=== PATIENT | female | born 1975 | race Caucasian/White ===

== ENCOUNTER 2023-09-18 13:03 | Emergency (ER) | payer OTHER, SELFPAY ==
[2023-09-18 13:07] VITALS: BP 153/73
--- NOTE | 2023-09-18 13:25 | ED.GENMED ---
History of Present Illness
<Mattie Zhou PROBATION OFFICER - Last Filed: 09/18/23 20:31>
General
Chief Complaint: Swelling
Source: patient
Exam Limitations: none
Time Seen by Provider: 09/18/23 13:18
Nursing documentation reviewed up to this point in time: agreed with
History of Present Illness
History of Present Illness:
48-year-old female with history of iron deficiency anemia, received her first dose infusion of iron in February of this year. No other medical history, takes no medications. Patient states yesterday her right leg felt a little sore and today she
awakened with swelling in the right leg from the mid thigh down to the ankle, the ankle and the foot are not affected but her toes feel numb and tingly. She denies chest pain or shortness of breath. She is an avid walker and walks about 25 miles
per week. No recollection of injury. She did fly to [place] and back for a cruise on July 28 and . She flew to [place] on 08/22 and back again.
Past History
<Mattie Zhou, PROBATION OFFICER - Last Filed: 09/18/23 20:31>
Past History
ED Past Medical History: Other (Iron deficiency anemia)
ED Past Surgical History: Appendectomy and
Social History
Tobacco: Non-smoker
Alcohol: None
Living: with family
Review of Systems
<Mattie Zhou, PROBATION OFFICER - Last Filed: 09/18/23 20:31>
Review of Systems
Allergies reviewed?: Yes
All Other Systems: ROS reviewed and negative except as documented in HPI and ROS
Constitutional: Denies fever
Respiratory: Denies trouble breathing
Cardiac: Denies chest pain
ABD/GI: Denies abdominal pain
Musculoskeletal: Reports other (swelling and discomfort right leg)
Skin: Reports no symptoms
Neurological: Reports numbness (tingling and mild numbness right foot and toes)
Phy Exam
<Mattie Zhou, PROBATION OFFICER - Last Filed: 09/18/23 20:31>
Physical Exam
Physical Exam:
GENERAL: No acute distress. A&Ox3.
CONSTITUTIONAL: Afebrile.
RESPIRATORY: Regular respirations, nonlabored, lungs clear.
CARDIOVASCULAR: Regular rate and rhythm, no murmurs, no rubs.
GI: Soft, nontender, normal BS
MUSCULOSKELETAL: Well perfused. Right leg with +1 swelling mostly from mid thigh to knee. mild swelling lower leg to ankle. Tender to palpation over quadriceps tendon. No discoloration. Pain elicited anterior thigh with SLR, flexing of knee (can
only flex to 45 degrees due to pain), PT pulse normal, unable to hear DP pulse with doppler, brisk capillary refill. Foot warm, pink, brisk capillary refill.
SKIN: Warm, dry, pink
PSYCH: Normal mood and affect. Well kept, interactive and appropriate
NEUROLOGIC: Awake, alert and oriented. No focal neurological deficits
Scores
<Mattie Zhou, PROBATION OFFICER - Last Filed: 09/18/23 20:31>
Heart Failure Risk
Heart Failure Risk Score: Not Applicable
Course
<Mattie Zhou, PROBATION OFFICER - Last Filed: 09/18/23 20:31>
Orders/Labs/Results
Orders:
Orders
09/18/23 13:25
US Periph Venous LOWER Ext RT Urgent
Comment:
Reason For Exam: swelling mid thigh to ankle
09/18/23 15:46
Complete Blood Count/With Diff Urgent
09/18/23 15:47
Basic Metabolic Panel Urgent
CPK [Creatine Phosphokinase] Stat
HCG, Serum Qualitative Screen Urgent
Comment: SERUM HCG QUALITATIVE ADDED ON BY FLOOR 3:50PM 09-18-23
09/18/23 15:49
Add On- LAB Urgent
Comments:: serum hcg qualitative
Tests Added?: serum hcg qualitative
09/18/23 16:16
CT Abd Aorta Angio W/ Run Off Urgent
Reason For Exam: Pain, swelling RLE unable to get DP pulse w dopple
09/18/23 18:31
CR Knee- Right 4 Or More View* Urgent
Comment:
Reason For Exam: swelling, pain suprapatellar area
09/18/23 19:57
Guillermo Wrap Right-Treatment ONCE
Comment: knee
Knee Immobilizer Right-Treatme ONCE
Abnormal Lab Results
09/18/23 09/18/23
15:46 15:47
RBC 3.57 L 10^6/uL
(4.20-5.40)
Hgb 9.3 L g/dL
(12.0-16.0)
Hct 29.0 L %
(37.0-47.0)
MCH 26.1 L pg
(27.0-31.0)
MCHC 32.1 L g/dL
(33.0-37.0)
MPV 10.6 H fL
(7.4-10.4)
Chloride 108 H mmol/L
(98-107)
09/18/23 15:46
09/18/23 15:47
Vital Signs
Initial and Last Documented VS:
Initial Vital Signs
Temp Pulse Resp BP Pulse Ox
98.9 F 75 18 153/73 99
09/18/23 13:07 09/18/23 13:07 09/18/23 13:07 09/18/23 13:07 09/18/23 13:07
Last Documented Vital Signs
Temp Pulse Resp BP Pulse Ox
98.9 F 62 17 137/67 99
09/18/23 13:07 09/18/23 19:44 09/18/23 19:44 09/18/23 19:44 09/18/23 19:44
<Casie Anaya MD - Last Filed: 09/18/23 16:18>
Orders/Labs/Results
Orders:
Orders
09/18/23 13:25
US Periph Venous LOWER Ext RT Urgent
Comment:
Reason For Exam: swelling mid thigh to ankle
09/18/23 15:46
Complete Blood Count/With Diff Urgent
09/18/23 15:47
Basic Metabolic Panel Urgent
CPK [Creatine Phosphokinase] Stat
HCG, Serum Qualitative Screen Urgent
Comment: SERUM HCG QUALITATIVE ADDED ON BY FLOOR 3:50PM 09-18-23
09/18/23 15:49
Add On- LAB Urgent
Comments:: serum hcg qualitative
Tests Added?: serum hcg qualitative
09/18/23 16:16
CT Abd Aorta Angio W/ Run Off Urgent
Reason For Exam: Pain, swelling RLE unable to get DP pulse w dopple
09/18/23 18:31
CR Knee- Right 4 Or More View* Urgent
Comment:
Reason For Exam: swelling, pain suprapatellar area
09/18/23 19:57
Guillermo Wrap Right-Treatment ONCE
Comment: knee
Knee Immobilizer Right-Treatme ONCE
Abnormal Lab Results
09/18/23 09/18/23
15:46 15:47
RBC 3.57 L 10^6/uL
(4.20-5.40)
Hgb 9.3 L g/dL
(12.0-16.0)
Hct 29.0 L %
(37.0-47.0)
MCH 26.1 L pg
(27.0-31.0)
MCHC 32.1 L g/dL
(33.0-37.0)
MPV 10.6 H fL
(7.4-10.4)
Chloride 108 H mmol/L
(98-107)
09/18/23 15:46
09/18/23 15:47
Vital Signs
Initial and Last Documented VS:
Initial Vital Signs
Temp Pulse Resp BP Pulse Ox
98.9 F 75 18 153/73 99
09/18/23 13:07 09/18/23 13:07 09/18/23 13:07 09/18/23 13:07 09/18/23 13:07
Last Documented Vital Signs
Temp Pulse Resp BP Pulse Ox
98.9 F 62 17 137/67 99
09/18/23 13:07 09/18/23 19:44 09/18/23 19:44 09/18/23 19:44 09/18/23 19:44
Procedures
<Mattie Zhou, PROBATION OFFICER - Last Filed: 09/18/23 20:31>
Incision/Drainage/Joint Aspiration
Right Lateral Knee:
Anethesia: 1% Lidocaine with Epi
Preparation: cleaned with alcohol wipe
Type of procedure: aspiration
Nature of site: other (suprapatellar effusion)
Description of abscess: drainage
How much fluid was obtained?: number in mls (45)
Fluid description: clear and straw colored
Treatment: bandaid applied
<Mattie Zhou PROBATION OFFICER - Last Filed: 09/18/23 20:31>
MDM/Problems Addressed
Differential Diagnosis Includes:
DVT., vascular occlusion, torn quadriceps, torn meniscus
MDM/Problems Addressed:
48-year-old female with history of iron deficiency anemia, received her first dose infusion of iron in February of this year. No other medical history, takes no medications. Patient states yesterday her right leg felt a little sore and today she
awakened with swelling in the right leg from the mid thigh down to the ankle, the ankle and the foot are not affected but her toes feel numb and tingly. She denies chest pain or shortness of breath. She is an avid walker and walks about 25 miles
per week. No recollection of injury. She did fly to [place] and back for a cruise on July 28 and . She flew to [place] on 08/22 and back again.
3:15 p.m.
US neg for DVT. No compartment syndrome
Case discussed with Dr. Anaya who examined pt., unable to get DP pulse with Doppler. Foot remains warm, pink.
CTA results:IMPRESSION:
1. Slightly diminished flow of the right distal anterior tibial artery and the dorsalis pedis. The bilateral lower extremity arterial vasculature is otherwise unremarkable.
2. Small to moderate right knee joint effusion.
Aspirated 45 ml clear straw colored fluid. Do not suspect infection, no need for fluid lab evaluation.
Guillermo wrap and knee immobilizer applied. Referred to ortho for f/u
Ambulating well with knee immobilizer
<Mattie Zhou PROBATION OFFICER - Last Filed: 09/18/23 20:31>
*Critical Care Note
Total Time (30-74mins, 75-104mins- exclusive of procedures): Not Applicable
ED Attending Note
<Mattie Zhou PROBATION OFFICER - Last Filed: 09/18/23 20:31>
-
Portions of this chart may have been created with voice recognition software.� Occasional wrong word or��sound alike� substitutions may have occurred due to the inherent limitations of voice recognition software.
<Casie Anaya MD - Last Filed: 09/18/23 16:18>
ED Attending Note
Patient seen and examined by attending physician: Yes
I performed the substantive portion of visit, reviewed & personally made and approve the management plan that is documented in note by myself or JACQUE.: Yes
ED Attending Note:
48-year-old female , generally healthy (no diabetes), presents with R leg pain for last two days, worse today. No cp/sob/f/c/drdainage. She notes leg is sl more swollen (thigh and distally) and notes pain with movement in distal thigh/patellar
tendon area. No injury/fall/trauma that she can easily recall. No redness. Pt did note recent travel, walks regularly. She noted some numbness, vague, in toes, now gone. On exam, no redness/warmth/bruising/crepitus/blistering/drainage or other
skin changes. With flexion of knee/straightleg raise, pt able to perform but sl limited rom b/c she feels it is swollen/tight in superior aspect patellar tendon and popliteal fossa area.
Normal pulses, warm, no cyanosis/pallor. US neg for DVT. Will explore further with CT, r/o collection/abscess?/nec fasc (very unlikely)/mass. Do not clinically appreciate compartment syndrome (no pain out of proportion, compartments are soft,
sens intact to light touch, no motor weakness) or vascular compromise (no cyanosis/pallor) however unable to get a DP pulse on R (can get PT) with doppler. d/w vascular, will get CTA and f/u.
Discharge Plan
Departure
Patient Disposition: Home (Routine Discharge)
Date of Disposition: 09/18/23
Time of Disposition: 19:57
Patient with high blood pressure during this ER visit?: No
Condition: Good
Discharge Problem:
Effusion of right knee
Instructions: Swollen Joints (DC), Meniscus Tear ED
Prescriptions:
No Action
No Current Medications
Referrals:
Charisma Joyce PA [Family Provider] -
Tatianna Ornelas I., DO [Active] - Call in 1-3 days for appt
Activity Restrictions/Additional Instructions:
As we discussed, wear the knee immobilizer when up and around for the next 5 days. Wear the guillermo wrap for the next 5 days as needed for swelling.
Call the orthopedic doctor's office tomorrow morning and make appointment for sometime in the next 2 weeks.
Tylenol or Ibuprofen as needed for pain
You may have a torn meniscus and MAY need further imaging.
Interventions
Interventions:
*Risk Screen - Suicide Last Done: 09/18/23 13:07
*General Assessment Last Done: 09/18/23 13:07
*Neglect/Abuse Screening Last Done: 09/18/23 13:07
*ED COVID-19 Vaccine History Last Done: 09/18/23 13:07
*Nursing Disposition Last Done: 09/18/23 20:21
ED- Cardiac Assessment Last Done: 09/18/23 14:57
ED- Pulmonary Assessment Last Done: 09/18/23 14:57
ED-Skin Assessment Last Done: 09/18/23 14:57
Discharge Date and Time
Discharge Date/Time: 09/18/23 20:22
Print Language: HUNGARIAN
[2023-09-18 14:54] VITALS: BMI 30.9
[2023-09-18 14:55] VITALS: BP 124/73
[2023-09-18 15:54] LABS: % Basophils 0.5 % (0-2); % Eosinophils 1.9 % (0-6); % Immature Granulocytes 0.2 % (0-0.5); % Lymphocytes 20.7 % (20.5-51.1); % Monocytes 5.8 % (1.7-9.3); % Neutrophils 70.9 % (42.2-75.2); Absolute Eosinophils 0.1 10^3/uL (0-0.7); Absolute Lymphocytes 1.2 10^3/uL (1.2-3.4); Absolute Monocytes 0.3 10^3/uL (0.1-0.6); Hemoglobin 9.3 g/dL (12.0-16.0); Mean Corp Hgb Conc. 32.1 g/dL (33.0-37.0); Mean Corpuscular Hgb 26.1 pg (27.0-31.0); Mean Corpuscular Volume 81.2 fL (81.0-99.0); Mean Platelet Volume 10.6 fL (7.4-10.4); Nucleated Red Blood Cells % 0 %; Platelet Count 265 10^3/uL (130-400); Red Blood Cell Count 3.57 10^6/uL (4.20-5.40); Red Cell Dist. Width 13.7 % (11.5-14.5); White Blood Cell Count 5.7 10^3/uL (4.8-10.8)
[2023-09-18 16:05] LABS: HCG, Serum Qualitative Screen Negative
[2023-09-18 16:08] LABS: Creatine Phosphokinase 59 U/L (30-135)
[2023-09-18 16:11] LABS: Blood Urea Nitrogen 10 mg/dl (7-17); Calcium 8.9 mg/dl (8.4-10.2); Carbon Dioxide 22 mmol/L (22-30); Chloride 108 mmol/L (98-107); Estimated Creatinine Clearance 94 ml/min; Glucose 90 mg/dl (70-99); Sodium 139 mmol/L (135-145); eGFR > 60.00
[2023-09-18 17:03] VITALS: BP 119/57
[2023-09-18 19:44] VITALS: BP 137/67
== END 2023-09-18 20:22 | disposition home or self-care (01) ==
LOC: EMR 13:03
PROVIDERS: Registered Nurse; EMERGENCY PHYSICIAN Emergency Medicine; FAMILY PHYSICIAN Physician Assistant Medical
DX: M25.461 Effusion, right knee (principal); R20.0 Anesthesia of skin; R22.41 Localized swelling, mass and lump, right lower limb; M79.651 Pain in right thigh; M25.561 Pain in right knee; R20.2 Paresthesia of skin; D50.9 Iron deficiency anemia, unspecified; Z88.8 Allergy status to other drugs, medicaments and biological substances
CPT/HCPCS: 99285; 20610; 29505; 73564; 75635; 80048; 82550; 84703; 85025; 93971; Q9967

== ENCOUNTER → 2023-10-24 06:40 | Outpatient (REF) | payer OTHER, SELFPAY | LOC: MRI 06:40 | PROVIDERS: ATTENDING PHYSICIAN Orthopaedic Surgery Sports Medicine; FAMILY PHYSICIAN Physician Assistant Medical | DX: M25.561 Pain in right knee (principal) | CPT/HCPCS: 73721 ==

== ENCOUNTER → 2023-11-13 15:59 | Outpatient (REF) | payer OTHER, SELFPAY ==
[2023-11-13 15:10] LABS: % Basophils 0.4 % (0-2); % Immature Granulocytes 0.2 % (0-0.5); % Lymphocytes 19.2 % (20.5-51.1); % Monocytes 5.4 % (1.7-9.3); % Neutrophils 73.8 % (42.2-75.2); Absolute Eosinophils 0.1 10^3/uL (0-0.7); Absolute Lymphocytes 0.9 10^3/uL (1.2-3.4); Absolute Monocytes 0.3 10^3/uL (0.1-0.6); Absolute Neutrophils 3.5 10^3/uL (1.4-6.5); Hemoglobin 8.7 g/dL (12.0-16.0); Mean Corp Hgb Conc. 31.1 g/dL (33.0-37.0); Mean Corpuscular Hgb 23.8 pg (27.0-31.0); Mean Corpuscular Volume 76.7 fL (81.0-99.0); Mean Platelet Volume 11.6 fL (7.4-10.4); Nucleated Red Blood Cells % 0 %; Platelet Count 241 10^3/uL (130-400); Red Blood Cell Count 3.65 10^6/uL (4.20-5.40); Red Cell Dist. Width 14.8 % (11.5-14.5); White Blood Cell Count 4.8 10^3/uL (4.8-10.8)
== END ==
LOC: OIDL 15:59
PROVIDERS: ATTENDING PHYSICIAN Nurse Practitioner Adult Health
DX: D50.9 Iron deficiency anemia, unspecified (principal)
CPT/HCPCS: 85025

== ENCOUNTER → 2023-12-14 08:34 | Outpatient (REF) | payer OTHER, SELFPAY | LOC: HWRAD 08:34 | PROVIDERS: ATTENDING PHYSICIAN Obstetrics & Gynecology; FAMILY PHYSICIAN Physician Assistant Medical; REFERRING PHYSICIAN Internal Medicine Hematology & Oncology | DX: N92.0 Excessive and frequent menstruation with regular cycle (principal) | CPT/HCPCS: 76830; 76856 ==